=== PATIENT | male | born 1960 | race African-American/Black ===

== ENCOUNTER → 2016-09-19 | Outpatient (CLI) | payer OTHER ==
[~2016-09-19] MED LIST: ALDACTONE25 MG PO; ALLOPURINOL300 MG PO; AMLODIPINE BESY10 MG PO; APRESOLINE PO; APRESOLINE10 M1 PO; BETAPACE80 MG PO; CLONIDINE HCL0.3 MG PO; COREG6.25 M1 PO; FUROSEMIDE40 MG PO; LOSARTAN POTASS50 MG PO; MAG-OX 400400 MG PO; METFORMIN HCL500 M1 PO; NEURONTIN100 MG PO; NORCO 10/3251 TAB PO; NORVASC PO; POTASSIUM CHLO20 ME1 PO; PRADAXA150 MG PO; PRAVACHOL PO; PRAVASTATIN SOD40 MG PO; SOTALOL AF80 M1 PO; TOPROL XL 50 MG50 M1 PO; VITAMIN D50000 UNIT PO; XARELTO20 MG PO
--- NOTE | ~2016-09-19 | CT14 ---
[facility] A Service of [facility] RADIOLOGY TEXT RESULTS PATIENT: LAWRENCE ROSEN [facility] 56 UNIT #: [id number] AGE: [address]: Jay Jensen MD SEX: M ORDER DR: [id number] [facility] [address] [place], [place] [address] [id number] O MR#: [id number] Acc #: [id number] NAME: LAWRENCE ROSEN : 1960 SEX: M STUDY DATE/TIME: 09/19/2016 12:50 UNIT: [facility] ROOM: STUDY DESCRIPTION: CT Angio Abdomen and Pelvis Attending Physician: Jay Jensen M.D. Referring Physician: Jay Jensen M.D. Ordering Physician: Jay Jensen M.D. Primary Care Physician: Tato Perez M.D. MEDICAL IMAGING REPORT This report is preliminary unless electronic signature is present EXAM CT scan of the abdomen and pelvis with contrast with aortic CT angiography. HISTORY Asymptomatic splenic artery aneurysm. Evaluate for growth of the aneurysm over time. TECHNIQUE Thin section axial images were obtained through the abdomen and pelvis with contrast. 100 mL of Isovue was used. Aortic CT angiography was performed with thick sliding MIPs, curved planar reformats and 3-D volumetric imaging with surface shaded display and volume shaded display. This CT exam was performed with one or more of the following radiation dose reduction techniques: automatic exposure control, adjustment of mA and/or kV according to patient size, and iterative reconstruction. COMPARISON Comparison is made to a previous CT scan dated 12/13/2015. FINDINGS The CT angiographic study shows a partially calcified splenic artery aneurysm at the hilum of the spleen. It measures 16 x 21 mm in transverse diameter. This is unchanged from the previous examination. There is no evidence of thrombus within the aneurysm. No new or enlarging aneurysms are seen. The abdominal aorta shows no evidence of aneurysm. The renal arteries are widely patent as are the mesenteric vessels. Extra-aortic structures are remarkable for bilateral renal cysts and a nonobstructing 7 mm kidney stone in the lower pole on the left that is unchanged in size. There is an umbilical hernia that contains fat noted once again. Since the previous scan, the patient has undergone lap-band surgery. The position of the band is grossly unremarkable and no fluid collections are seen around the stomach at the site of banding or along the catheter. [facility] A Service of [facility] RADIOLOGY TEXT RESULTS PATIENT: LAWRENCE ROSEN LOCATION: [facility] : 56 UNIT #: [id number] AGE: [address]: Jay Jensen MD SEX: M ORDER DR: IMPRESSION Stable splenic artery aneurysm. Nonobstructing left kidney stone. Dictated by... Suresh Marsh M.D. THIS IS AN ELECTRONICALLY VERIFIED REPORT Suresh Marsh M.D. at 09/20/2016 1:27 PM PAULIE/robert TD: 09/20/2016 09:16 JOB #: [id number] MEDICAL IMAGING REPORT Page 1 of 1 COPY
[2016-09-19 17:26] LABS: POC - GFR >60.0 mL/min (>60)
== END | disposition home or self-care (01) ==
LOC: CCAT 09:00
PROVIDERS: Surgery Vascular Surgery
DX: I72.8 Aneurysm of other specified arteries (principal); I10 Essential (primary) hypertension; N20.0 Calculus of kidney
CPT/HCPCS: 74174; 82565; Q9967